=== PATIENT | male | born 1980 | race Caucasian/White ===

== ENCOUNTER 2017-09-04 07:39 | Emergency (ER) | payer OTHER ==
[~2017-09-04] VITALS: Ht 172.7 cm; Wt 82.0 kg
[~2017-09-04 07:39] MED LIST: MULT-506 PO
[2017-09-04 07:44] VITALS: TEMP 36.8; Ht 172.7 cm; Wt 82.0 kg
[2017-09-04] MEDS ORDERED: SODIUM CHLORIDE 0.9% 1000ML 1,000 ML IV STA (08:02)
[2017-09-04] MEDS ORDERED: MoRPHine SULFATE 10 MG/ML CARP/VIAL IV STA (08:02)
[2017-09-04] MEDS ORDERED: ONDANSETRON INJ 2 MG/ML 2 ML VIAL IV STA (08:02)
[2017-09-04 08:26] LABS: BASO % 0.1 %; BASO ABS # 0.02 K/uL (0-0.2); COMPLETE YES; EOS % 0.1 %; IG% 0.2 %; LYMPH % 6.5 %; LYMPH ABS # 1.01 K/uL (1.2-3.4); MEAN CORPUSCULAR HEMOGLOBIN 29.6 pg (25-34); MEAN CORPUSCULAR HGB CONC 34.4 g/dl (32-36); MEAN PLATELET VOLUME 10.1 fL (7.4-10.4); MONO % 4.2 %; NEUT % 88.9 %; PLATELET COUNT 220 K/uL (130-400); RED BLOOD COUNT 5.23 M/uL (4.7-6.1); WHITE BLOOD COUNT 15.65 K/uL (4.8-10.8)
[2017-09-04 08:45] LABS: BUN/CREATININE RATIO 18.8 (10-20); CALCIUM 9.6 mg/dl (8.5-10.1); CREATININE 0.97 mg/dl (0.60-1.40); POTASSIUM 3.5 mmol/L (3.5-5.1)
[2017-09-04 08:51] LABS: URINE APPEARANCE CLEAR (CLEAR); URINE BILIRUBIN NEG (NEG); URINE COLOR YELLOW; URINE PH 6.5 (4.5-7.5); URINE SPECIFIC GRAVITY 1.017 (1.000-1.030)
[2017-09-04 08:52] LABS: URINE NITRITE NEG (NEG); UROBILINOGEN NEG (NEG)
[2017-09-04 08:53] LABS: MANUAL MICROSCOPIC REQUIRED? NO; REVIEW REQ? NO
[2017-09-04] MEDS ORDERED: RIZA10TA18 PO (08:56)
[2017-09-04] MEDS ORDERED: VITACAP26 PO (08:56)
--- NOTE | 2017-09-04 09:01 | DIAGNOSTIC IMAGING REPORT ---
CT SCAN OF THE ABDOMEN AND PELVIS WITHOUT IV CONTRAST CLINICAL HISTORY: Flank pain and hematuria. COMPARISON STUDY: No priors. TECHNIQUE: CT scan of the abdomen and pelvis is performed from the lung bases to the proximal femora. Images are reviewed in the axial, sagittal, and coronal planes. IV contrast was not administered for this examination. A dose lowering technique was utilized adhering to the principles of ALARA. CT DOSE: 661.08 mGycm FINDINGS: Lung bases: The heart is normal in size and without pericardial effusion. The lung bases are clear. Liver: The unenhanced liver is normal in size, contour, and attenuation. There is no intrahepatic biliary ductal dilatation. Gallbladder: Unremarkable. Spleen: Normal in size and attenuation. Pancreas: Unremarkable. Adrenal glands: Unremarkable. Kidneys: The unenhanced kidneys are normal in size. There is mild right hydroureteronephrosis. There is mild associated right-sided perinephric and periureteric stranding as well as trace right-sided perinephric fluid. No right ureteral calculus is seen. There are at least 3 punctate nonobstructing right renal calculi. A single punctate nonobstructing calculus is also seen in the left. There is no evidence of contour deforming renal mass lesion. Abdominal vasculature: The abdominal aorta is normal in course and caliber. Bowel: The small bowel and colon are normal in course and caliber. The appendix is well-visualized and normal. Peritoneum: There is no intraperitoneal free air or abdominal ascites. There is a small fat-containing umbilical hernia. Lymphadenopathy: None. Pelvic viscera: The bladder, prostate, and seminal vesicles are normal as visualized. There are small bilateral fat-containing inguinal hernias. A small left-sided varicocele is suggested. Skeletal structures: No lytic or blastic lesions are seen. IMPRESSION: 1. There is mild right hydroureteronephrosis with associated perinephric stranding and trace perinephric fluid. No right ureteral calculus is identified and this likely represents the sequelae of a recently passed kidney stone. Urinary tract infection/pyelonephritis is considered less likely but is the top consideration. Correlation with clinical findings and urinalysis will be required. 2. Punctate nonobstructing calculi are present in both kidneys. 3. Small bilateral fat-containing inguinal hernias. Electronically signed by: Luke Macedo M.D. 09/04/2017 9:00 AM Dictated Date/Time: 09/04/2017 8:53 AM
[2017-09-04 09:23] VITALS: BP 123/69; PULSE 91; O2SAT 99
[2017-09-04] MEDS ORDERED: HYDR-5688 PO (09:34)
--- NOTE | 2017-09-04 17:31 | EMERGENCY ROOM VISIT NOTE ---
ED Visit Note First contact with patient: 07:50 Chief Complaint: I'm having right sided back pain and spasm. History of Present Illness: Mr. Malagon is a 36-year-old white male who is brought into the ED via ambulance accompanied by his complaining of right sided thoracic back pain. Patient reports he has mild chronic back pain but nothing severe. He has had no recent direct trauma or repetitive trauma. Patient reports she had an acute onset of severe right-sided back pain that woke him from sleep approximately 3 hours ago. Patient is just inferior to the right kidney. He describes his pain as a combination of sharp and spasm. He rates his discomfort 10/10. Pain is minimally radiating inferiorly and to the lateral aspect of the abdomen. He has not identified any aggravating or alleviating factors related to the pain. He has not taken medications for pain prior to arrival at the hospital. Associated with his pain he reports she's been nauseated and has multiple episodes of vomiting. He denies fevers, chills, sweats, skin eruptions, skin color changes, upper respiratory tract symptoms, cough, wheezing, shortness of breath, abdominal pain , diarrhea, constipation, rectal bleeding, black/tarry stools, urinary symptoms , hematuria, bowel and bladder dysfunction, genital paresthesias, lower extremity weakness/numbness/tingling. Review of Systems: As noted above in history of present illness. All body systems were reviewed and found to be negative as noted above. Past Medical History: Bronchitis, status post tonsillectomy. Current Medications: Maxalt, vitamin C, multivitamins. Allergies to Medications: Augmentin, Levaquin. Social History: Patient is currently employed; she feels safe in her home environment; she denies tobacco and alcohol use. Physical Examination: Date Time Temp Pulse Resp B/P (MAP) Pulse Ox O2 Delivery O2 Flow Rate FiO2 09/04/17 09:23 91 18 123/69 99 Room Air 09/04/17 07:44 36.8 95 18 141/90 95 Room Air GENERAL: 36-year-old male in mild to moderate distress due to pain, nontoxic- appearing, afebrile and hemodynamically stable. NEUROLOGICAL: Awake, alert and oriented to person, place and time. Answering questions appropriately and following commands. Normal gait. Good hand eye coordination. No focal motor sensory deficits. SKIN: Warm, dry and pink. No soft tissue eruptions or trauma noted. HEENT: Atraumatic and normocephalic. PERRL. Sclera white and conjunctiva pink. No drainage from naris. Oral cavity moist and pink. Pharynx is nonerythematous or edematous. Speech normal. No lymphadenopathy. Trachea midline. No jugular venous distention. BACK: No tenderness over the bony spine. No CVA tenderness. THORAX: Lungs sounds are clear to auscultation and equal bilaterally with symmetrical chest wall. No wheezing, rales or rhonchi. No crepitus, tenderness , subcutaneous air or deformities noted. HEART: Regular rate and rhythm. No gallops, rubs or murmurs are appreciated. ABDOMEN: Flat, soft and nontender. Positive bowel sounds in all quadrants. No guarding, rigidity or organomegaly. EXTREMITIES: Moves all extremities well on command and with purpose. All distal neurovascular statuses are intact and equal bilaterally. No calf tenderness or cords. ED Course: Patient is assessed as noted above. A [facility] medication list was reviewed. Laboratory Testing: Test 09/04/17 08:05 09/04/17 08:10 Range/Units Urine Color YELLOW Urine Appearance CLEAR CLEAR Urine pH 6.5 4.5-7.5 Urine Specific [place] 1.017 1.000-1.030 Urine Protein NEG NEG Urine Glucose (UA) NEG NEG Urine Ketones NEG NEG Urine Occult Blood 3+ NEG Urine Nitrite NEG NEG Urine Bilirubin NEG NEG Urine Urobilinogen NEG NEG Urine Leukocyte Esterase NEG NEG Urine WBC (Auto) 1-5 0-5 /hpf Urine RBC (Auto) 5-10 0-4 /hpf Urine Hyaline Casts (Auto) 1-5 0-5 /lpf Urine Epithelial Cells (Auto) 5-10 0-5 /lpf Urine Bacteria (Auto) NEG NEG White Blood Count 15.65 4.8-10.8 K/uL Red Blood Count 5.23 4.7-6.1 M/uL Hemoglobin 15.5 14.0-18.0 g/dL Hematocrit 45.0 42-52 % Mean Corpuscular Volume 86.0 80-100 fL Mean Corpuscular Hemoglobin 29.6 25-34 pg Mean Corpuscular Hemoglobin Concent 34.4 32-36 g/dl Platelet Count 220 130-400 K/uL Mean Platelet Volume 10.1 7.4-10.4 fL Neutrophils (%) (Auto) 88.9 % Lymphocytes (%) (Auto) 6.5 % Monocytes (%) (Auto) 4.2 % Eosinophils (%) (Auto) 0.1 % Basophils (%) (Auto) 0.1 % Neutrophils # (Auto) 13.92 1.4-6.5 K/uL Lymphocytes # (Auto) 1.01 1.2-3.4 K/uL Monocytes # (Auto) 0.66 0.11-0.59 K/uL Eosinophils # (Auto) 0.01 0-0.5 K/uL Basophils # (Auto) 0.02 0-0.2 K/uL RDW Standard Deviation 39.8 36.4-46.3 fL RDW Coefficient of Variation 12.6 11.5-14.5 % Immature Granulocyte % (Auto) 0.2 % Immature Granulocyte # (Auto) 0.03 0.00-0.02 K/uL Sodium Level 139 136-145 mmol/L Potassium Level 3.5 3.5-5.1 mmol/L Chloride Level 105 98-107 mmol/L Carbon Dioxide Level 29 21-32 mmol/L Anion Gap 5.0 3-11 mmol/L Blood Urea Nitrogen 18 7-18 mg/dl Creatinine 0.97 0.60-1.40 mg/dl Est Creatinine Clear Calc Drug Dose 99.9 ml/min Estimated GFR () 114.3 Estimated GFR (Non- 98.6 BUN/Creatinine Ratio 18.8 10-20 Random Glucose 112 70-99 mg/dl Calcium Level 9.6 8.5-10.1 mg/dl Total Bilirubin 0.6 0.2-1 mg/dl Direct Bilirubin 0.2 0-0.2 mg/dl Aspartate Amino Transf (AST/SGOT) 21 15-37 U/L Alanine Aminotransferase (ALT/SGPT) 29 12-78 U/L Alkaline Phosphatase 79 45-117 U/L Total Protein 8.1 6.4-8.2 gm/dl Albumin 4.6 3.4-5.0 gm/dl Lipase 232 73-393 U/L Noncontrast Abdominal/Pelvic CT: Was reviewed by myself and read by the radiologist and shows mild right hydroureteronephrosis with associated perinephric stranding and trace perinephric fluid. No right renal calculi identified. Questionably represents recently passed stone or UTI/ pyelonephritis. Punctate nonobstructing bilateral renal calculi. Small bilateral fat-containing inguinal hernias. Patient was hydrated with normal saline and he received 6 mg of morphine IV and 4 mg of Zofran IV for his symptoms. Patient was reassessed multiple times during his stay in the emergency department. Patient's case was reviewed with Dr. Bell; we agreed on diagnostic approach, treatment, disposition and plan. Patient was educated about today's findings and instructed on his treatment plan ; he verbalizes understanding and agreement with this plan. Clinical Impression: Right flank pain. Possible recent passage of ureter calculus. Decision-Making: Initially my differential diagnosis I considered muscle spasm, herniated disc, pyelonephritis, ureter calculus, pneumonia, pancreatitis and other causes. Disposition: Patient discharged home in stable condition accompanied by his ; prior to departure he was reassessed and subjectively reported he was feeling better and rated his discomfort 7/10 and reported resolution of nausea. Plan: Comfort measures were discussed with the patient including a sliding pain medication scale of ibuprofen, acetaminophen and Section; patient was given appropriate narcotic precautions and his name was checked on the state database and no red flags were noted. Patient was encouraged to increase fluids, strain all urine and collect all stones for analysis. Patient was encouraged to follow-up with his family physician for recheck in 3- 4 days and possible referral to urologist. Patient was encouraged return ED for worsening/uncontrolled pain, bloody urine, fevers, vomiting or any new/concerning symptoms.
== END 2017-09-04 09:54 | disposition home or self-care (01) ==
LOC: EDBD 07:39 → C.EDA 07:40
DX: R10.9 Unspecified abdominal pain (principal)